=== PATIENT | male | born 1930 | race Caucasian/White ===

== ENCOUNTER 2017-02-18 13:06 | Inpatient (IN) | payer OTHER, MEDICARE ==
[2017-02-18] VITALS (10 sets, daily range): BP systolic 112–131; BP diastolic 53–62; PULSE 58–95; RESP 18–21; TEMP 96.4–97.9; O2SAT 86–100
[~2017-02-18] VITALS: Ht 177.8 cm; Wt 100.0 kg
[~2017-02-18 13:06] MED LIST: ASPI81 PO; ATEN-100 PO; FISH1000 PO; GLUC500C4 PO; LEVO125T3 PO; LOTE10TA2 PO; LOVA1TAB47 PO; RANI150T PO; TAB-TAB PO
--- NOTE | 2017-02-18 13:33 | PD ---
Physical Exam Date Seen by Provider: Feb 18, 2017 Time Seen by Provider: 13:29 Narrative 86 year old male presents to the emergency department for evaluation of generalized weakness. He states he has been having dark, tarry stools for 2 weeks. He was sent by his primary care physician for drop in hemoglobin from 14.0 to 8.4. Vital signs reviewed. Patient awaiting bed placement. Data Data Last Documented VS Vital Signs Date Time Temp Pulse Resp B/P Pulse Ox O2 Delivery O2 Flow Rate FiO2 02/18/17 13:10 97.5 77 20 113/57 86 Room Air [facility] Supervised Visit with HELEN: Kasey Perdomo Feb 18, 2017 13:33
[2017-02-18] MEDS ORDERED: SODIUM CHLOR 0.9% 1000 ML INJ 1,000 ML IV SCH ×2 (15:24→17:30)
[2017-02-18] MEDS ORDERED: SODIUM CHLORIDE 0.9% FLUSH 10 ML FLUSH IVF PRN (15:30)
[2017-02-18] MEDS ORDERED: PANTOPRAZOLE INJ 80 MG in SODIUM CHLORIDE 0.9% INJ 35 ML IV ONE (15:30)
--- NOTE | 2017-02-18 15:30 | PD ---
HPI Chief Complaint: GI Complaint Time Seen by Provider: 15:29 Travel History International Travel<30 days: No Contact w/Intl Traveler<30days: No Traveled to known affect area: No History of Present Illness HPI 86-year-old male with a history of hypertension, hypothyroidism, chronic kidney disease, COPD, and hyperlipidemia presents to the emergency department for evaluation of weakness, lightheadedness and dark stool for 2 weeks. Patient states he was seen at his primary care provider's office today and was told that his hemoglobin had dropped so he was told to come to the emergency department. He states that he has had dark black stool for 2 weeks. Denies any fever, chills, nausea, vomiting, abdominal pain, chest pain, shortness of breath. Denies any prior history of GI bleeding. He does take aspirin daily. Denies any anticoagulation. He does drink one to 2 alcoholic beverages 4 or more times per week. He has never had a colonoscopy before. PCP Dr. Sparks. No other complaints. PFSH Past Medical History Arthritis: Yes Cancer: No Cardiovascular Problems: Yes (AAA) High Cholesterol: Yes Diabetes: No Endocrine: Yes GERD: Yes Genitourinary: No Immune Disorder: No Musculoskeletal: Yes Neurologic: No Psychiatric: No Reproductive: No Respiratory: Yes (COPD) Thyroid Disease: Yes Ulcer: Yes (HX GI BLEED) Tetanus Vaccination: Unknown Influenza Vaccination: Yes Past Surgical History Abdominal Surgery: Yes (DAKOTA. ING. HERNIA REP.) Oral Surgery: Yes (T & A) Pacemaker: No Social History Alcohol Use: Yes (2 DRINKS A NIGHT ) Tobacco Use: No (QUIT 17 YEARS AGO ) Substance Use: No Allergies-Medications (Allergen,Severity, Reaction): Coded Allergies: No Known Allergies (Unverified , 07/21/12) Reported Meds & Prescriptions Reported Meds & Active Scripts Active Reported Fish Oil 1,000 Mg Cap 1,000 Mg PO DAILY Glucosamine/Chondroitin P (Glucosamine-Chondroitin) 1 Tab Tab 1 Tab PO DAILY Multivitamin (Multivitamins) 1 Tab Tab 1 Tab PO DAILY Levothyroxine Sodium (Generic) (Levothyroxine Sodium) 125 Mcg Tab 125 Mcg PO HS Lotensin Hct 10/12.5 (Benazepril/HCTZ) Tab 1 Tab PO DAILY Lovastatin 20 Mg Tab 20 Mg PO Ranitidine Hcl (Ranitidine HCl) 150 Mg Cap 150 Mg PO HS Atenolol 25 Mg Tab 25 Mg PO BID Aspirin 81 Mg Tab 81 Mg PO DAILY Review of Systems Except as stated in HPI: all other systems reviewed are Neg Physical Exam Narrative GENERAL: Well-nourished and well-developed pleasant male patient in no acute distress. SKIN: Pale. Warm and dry. HEAD: Normocephalic and atraumatic. EYES: No injection, drainage, or hyphema noted. PERRLA. EOMI. ENT: No nasal drainage noted. Oropharynx is clear. NECK: Supple and the trachea is midline. CARDIOVASCULAR: Regular rate and rhythm. RESPIRATORY: Breath sounds are equal bilaterally with no accessory muscle use, wheezing, rhonchi, or crackles. GASTROINTESTINAL: Abdomen is soft, non-tender, and nondistended. RECTAL EXAM: No masses or tenderness, stool is block. Performed in the presence of Louann ARAUJO. MUSCULOSKELETAL: No obvious deformities, swelling, cyanosis, or ecchymosis is present throughout the upper and lower extremities. Patient has full range of motion without any signs of neurovascular compromise. NEUROLOGICAL: Awake, alert, and oriented. Normal speech and gait. Cranial nerves are grossly intact. Data Data Last Documented VS Vital Signs Date Time Temp Pulse Resp B/P Pulse Ox O2 Delivery O2 Flow Rate FiO2 02/18/17 13:30 99 02/18/17 13:10 97.5 77 20 113/57 Room Air Orders Complete Blood Count With Diff (02/18/17 15:24) Comprehensive Metabolic Panel (02/18/17 15:24) Prothrombin Time / Inr (Pt) (02/18/17 15:24) Act Partial Throm Time (Ptt) (02/18/17 15:24) Type And Screen (02/18/17 15:24) Ecg Monitoring (02/18/17 15:24) Iv Access Insert/Monitor (02/18/17 15:24) Oximetry (02/18/17 15:24) Sodium Chlor 0.9% 1000 Ml Inj (Ns 1000 M (02/18/17 15:24) Sodium Chloride 0.9% Flush (Ns Flush) (02/18/17 15:30) Pantoprazole Inj (Protonix Inj) (02/18/17 15:30) Pantoprazole Inj (Protonix Inj) (02/18/17 15:30) Orthostatic Vital Signs (02/18/17 15:27) Red Blood Cells (Rbc) (02/18/17 15:27) Consult Gastroenterology (02/18/17 ) Admit Order (Ed Use Only) (02/18/17 17:16) Iron/Tibc Profile (02/18/17 17:16) Ferritin (02/18/17 17:16) Sodium Chlor 0.9% 1000 Ml Inj (Ns 1000 M (02/18/17 17:30) Admit To Inpatient (02/18/17 ) Inpatient Certification (02/18/17 ) Diet Clear Liquid (02/18/17 Dinner) Npo After Midnight W/ Po Meds (02/18/17 Dinner) Labs Laboratory Tests Test 02/18/17 16:10 White Blood Count 9.2 TH/MM3 Red Blood Count 2.49 MIL/MM3 Hemoglobin 8.0 GM/DL Hematocrit 23.1 % Mean Corpuscular Volume 93.1 FL Mean Corpuscular Hemoglobin 32.3 PG Mean Corpuscular Hemoglobin 34.7 % Concent Red Cell Distribution Width 14.5 % Platelet Count 173 TH/MM3 Mean Platelet Volume 8.4 FL Neutrophils (%) (Auto) 79.1 % Lymphocytes (%) (Auto) 13.3 % Monocytes (%) (Auto) 6.3 % Eosinophils (%) (Auto) 1.1 % Basophils (%) (Auto) 0.2 % Neutrophils # (Auto) 7.2 TH/MM3 Lymphocytes # (Auto) 1.2 TH/MM3 Monocytes # (Auto) 0.6 TH/MM3 Eosinophils # (Auto) 0.1 TH/MM3 Basophils # (Auto) 0.0 TH/MM3 CBC Comment AUTO DIFF Prothrombin Time 11.6 SEC Prothromb Time International 1.0 RATIO Ratio Activated Partial 19.8 SEC Thromboplast Time Sodium Level 143 MEQ/L Potassium Level 4.2 MEQ/L Chloride Level 113 MEQ/L Carbon Dioxide Level 19.6 MEQ/L Anion Gap 10 MEQ/L Blood Urea Nitrogen 43 MG/DL Creatinine 1.44 MG/DL Estimat Glomerular Filtration 46 ML/MIN Rate Random Glucose 107 MG/DL Calcium Level 8.4 MG/DL Total Bilirubin 0.4 MG/DL Aspartate Amino Transf 17 U/L (AST/SGOT) Alanine Aminotransferase 16 U/L (ALT/SGPT) Alkaline Phosphatase 32 U/L Total Protein 5.7 GM/DL Albumin 3.1 GM/DL MDM Medical Decision Making Medical Screen Exam Complete: Yes Emergency Medical Condition: Yes Differential Diagnosis GI bleed versus lower versus upper versus symptomatic anemia versus orthostatic hypotension Narrative Course 86-year-old male presents to the emergency department for evaluation of weakness , lightheadedness and black stools for 2 weeks. Patient is afebrile, vital signs are stable. Initially his oxygen saturation was noted to be 86% on room air but is now 99% on room air, likely an error. He is in no respiratory distress and has no shortness of breath. Stools guaiac positive. IV access is obtained, labs are drawn and sent. Patient is placed on alarm security or surveillance monitor and pulse oximetry monitoring. Protonix bolus and drip has been initiated. CBC shows anemia with hemoglobin of 8.0, hematocrit 23.1. CMP shows renal insufficiency with a creatinine of 1.44, BUN 43, GFR 46. This is consistent with previous lab values. Coags are unremarkable. Gastroenterology consult has been ordered. Patient has remained stable and without complaint here in the emergency department. Patient will be admitted for GI bleed. I discussed the case with my attending physician Dr. Mathias who is aware of the patients history, physical examination findings, and treatment plan. HemaPrompt Point of Care Internal Pos. & Neg. Controls: Passed Fecal Specimen Occult Blood: Positive Physician Communication Physician Communication I spoke with Dr. Moon [facility] who agrees to admit the patient to her service. Diagnosis Primary Impression: GI bleed Qualified Code: K92.2 - Gastrointestinal hemorrhage, unspecified gastrointestinal hemorrhage type Additional Impression: Symptomatic anemia Admitting Information Admitting Physician Requests: Admit Sahara Lee Feb 18, 2017 15:29
[2017-02-18 16:18] LABS: AUTOMATED NEUTROPHIL # 7.2 TH/MM3 (1.8-7.7); BASOPHIL % 0.2 % (0.0-2.0); EOSINOPHIL # 0.1 TH/MM3 (0-0.4); EOSINOPHIL % 1.1 % (0.0-4.0); HEMATOCRIT 23.1 % (39.0-51.0); LYMPH % 13.3 % (9.0-44.0); LYMPHOCYTE # 1.2 TH/MM3 (1.0-4.8); MEAN CELL VOLUME 93.1 FL (80.0-100.0); MEAN CORPUSCULAR HEMOGLOBIN 32.3 PG (27.0-34.0); MEAN CORPUSCULAR HGB CONC 34.7 % (32.0-36.0); MONO % 6.3 % (0.0-8.0); NEUT % 79.1 % (16.0-70.0); PLATELET COUNT 173 TH/MM3 (150-450); RED BLOOD COUNT 2.49 MIL/MM3 (4.50-5.90); RED CELL DISTRIBUTION WIDTH 14.5 % (11.6-17.2); WHITE BLOOD COUNT 9.2 TH/MM3 (4.0-11.0)
[2017-02-18 16:20] LABS: HEMO FLAGS AUTO DIFF
[2017-02-18 16:34] LABS: PROTHROMBIN TIME - PATIENT 11.6 SEC (9.8-11.6)
[2017-02-18 16:36] LABS: ALT (GPT) 16 U/L (12-78); ANION GAP 10 MEQ/L (5-15); AST (GOT) 17 U/L (15-37); BICARBONATE 19.6 MEQ/L (21.0-32.0); BLOOD UREA NITROGEN 43 MG/DL (7-18); CHLORIDE 113 MEQ/L (98-107); GLOMERULAR FILTRATION RATE 46 ML/MIN (>89); POTASSIUM 4.2 MEQ/L (3.5-5.1); SODIUM (NA) 143 MEQ/L (136-145)
[2017-02-18 16:38] LABS: ALKALINE PHOSPHATASE 32 U/L (45-117); TOTAL BILIRUBIN ADULT 0.4 MG/DL (0.2-1.0)
[2017-02-18 16:39] LABS: APTT (PATIENT) 19.8 SEC (24.3-30.1)
[2017-02-18] MEDS: PANTOPRAZOLE INJ 80 MG in SODIUM CHLORIDE 0.9% INJ 100 ML IV SCH (17:51)
[2017-02-18 18:00] LABS: EOSINOPHILS 1 % (0-4); METAMYELOCYTES 2 % (0-1); MYELOCYTES 2 % (0-0); NEUTROPHIL # MANUAL DIFF 7.2 TH/MM3 (1.8-7.7); PLATELET ESTIMATE SMEAR NORMAL (NORMAL); PLATELET MORPHOLOGY NORMAL (NORMAL); POLYS (SEG NEUTROPHILS) 74 % (16-70); SCAN/DIFF FINAL DIFF MANUAL; WBC DIFF SAMPLE 100
[2017-02-18 18:07] LABS: FERRITIN 86 NG/ML (26-388); TRANSFERRIN IRON PROFILE 201 MG/DL (200-360)
[2017-02-18] MEDS ORDERED: SODIUM CHLORIDE 0.9% FLUSH 10 ML FLUSH IV FLUSH PRN (19:15)
[2017-02-18] MEDS ORDERED: ACETAMINOPHEN 325 MG TAB PO PRN (19:15)
[2017-02-18] MEDS ORDERED: ONDANSETRON HCL 4 MG/2 ML VIAL IVP PRN (19:15)
[2017-02-18] MEDS ORDERED: NALOXONE HCL 0.4 MG/ML AMP IV PRN (19:15)
--- NOTE | 2017-02-18 19:42 | HHI.HP ---
[facility] Silvina Sparks Do, MD Admission Diagnosis GI Bleed, Symptomatic Anemia Diagnoses: Chief Complaint: Worsening generalized weakness and dizzinessx 2-3 weeks Travel History International Travel<30 Days: No Contact w/Intl Traveler <30 Da: No Traveled to Known Affected Are: No History of Present Illness This a pleasant 86-year-old male patient with past medical history which includes hypertension, hyperlipidemia, hypothyroidism, osteoarthritis, GERD, chronic kidney disease, COPD and AAA status post repair. Patient presents to the emergency department today after instructed by his primary care provider. Patient's primary care provider noted a drop in hemoglobin from 14.1-8.0. Patient reports for the past 2-3 weeks he has been having dark tarry stools. For the past 3 days patient reports he has had increasing generalized weakness, feeling lightheaded/dizziness and shortness of breath. The symptoms are getting progressively worse. Patient reports the feeling lightheaded and dizziness is worse with standing or sitting up fast. Patient denies right red blood per rectum, abdominal pain, nausea/vomiting, fevers, chills, cough, congestion or chest pain. Denies any prior history of GI bleeding. He does take aspirin daily. Reports he has never had a colonoscopy before. Hemoccult stool positive emergency department Review of Systems ROS Limitations: Poor Historian Except as stated in HPI: all other systems reviewed are Neg Past Family Social History Past Medical History Hypertension, hypokalemia, hypothyroidism, osteoarthritis right knee, GERD, CKD , AAA status post repair, COPD Past Surgical History Hernia repair, right total knee replacement, AAA status post repair Reported Medications Fish Oil 1,000 Mg Cap 1,000 Mg PO DAILY Glucosamine/Chondroitin P (Glucosamine-Chondroitin) 1 Tab Tab 1 Tab PO DAILY Multivitamin (Multivitamins) 1 Tab Tab 1 Tab PO DAILY Levothyroxine Sodium (Generic) (Levothyroxine Sodium) 125 Mcg Tab 125 Mcg PO HS Lotensin Hct 10/12.5 (Benazepril/HCTZ) Tab 1 Tab PO DAILY Lovastatin 20 Mg Tab 20 Mg PO Ranitidine Hcl (Ranitidine HCl) 150 Mg Cap 150 Mg PO HS Atenolol 25 Mg Tab 25 Mg PO BID Aspirin 81 Mg Tab 81 Mg PO DAILY Allergies: Coded Allergies: No Known Allergies (Unverified , 07/21/12) Active Ordered Medications Current Medications Medications (Trade) Dose Ordered Sig/Maria Luisa Route Start Time Stop Time Status Last Admin Pantoprazole Sodium 80 mg/ Sodium Chloride 100 ml @ 10 mls/hr Q10H IV 02/18/17 15:30 02/18/17 17:51 (NS 1000 ml Inj) 1,000 ml @ 75 mls/hr [id number] IV 02/18/17 20:00 02/18/17 20:21 (NS Flush) 2 ml UNSCH PRN IV FLUSH 02/18/17 19:15 (NS Flush) 2 ml BID IV FLUSH 02/18/17 21:00 (Tylenol) 650 mg Q4H PRN PO 02/18/17 19:15 (Zofran Inj) 4 mg Q6H PRN IVP 02/18/17 19:15 (Narcan Inj) 0.4 mg UNSCH PRN IV 02/18/17 19:15 Family History Positive for CAD Social History EtOH use drinks one to 2 alcoholic drinks per day Quit smoking cigarettes approximately 10 years ago prior to that had 30 pack year history Denies illicit drug use Physical Exam Vital Signs Vital Signs Date Time Temp Pulse Resp B/P Pulse Ox O2 Delivery O2 Flow Rate FiO2 02/18/17 18:44 97.7 95 21 123/58 99 02/18/17 18:14 62 20 115/62 98 Room Air 02/18/17 18:13 99 Room Air 02/18/17 17:00 58 20 113/53 98 Room Air 02/18/17 15:00 65 20 112/62 97 Room Air 02/18/17 13:30 99 02/18/17 13:10 97.5 77 20 113/57 86 Room Air Physical Exam GENERAL: This is a well-nourished, well-developed patient, pale in appearance SKIN: No rashes, ecchymoses or lesions. Cool and dry, pale in appearance HEAD: Atraumatic. Normocephalic. No temporal or scalp tenderness. EYES: Extraocular motions intact. No scleral icterus. No injection or drainage. CARDIOVASCULAR: Regular rate and rhythm without murmurs, gallops, or rubs. RESPIRATORY: Clear to auscultation. Breath sounds equal bilaterally. No wheezes , rales, or rhonchi. GASTROINTESTINAL: Abdomen soft, non-tender, nondistended.No guarding. + umbilical hernia MUSCULOSKELETAL: Trace bilateral lower extremity edema No calf tenderness. Negative Homans sign bilaterally. NEUROLOGICAL: Awake and alert. No focal deficits appreciated. Motor and sensory grossly within normal limits. 4 out of 5 muscle strength in all muscle groups. Normal speech. Laboratory Laboratory Tests Test 02/18/17 16:10 White Blood Count 9.2 Red Blood Count 2.49 Hemoglobin 8.0 Hematocrit 23.1 Mean Corpuscular Volume 93.1 Mean Corpuscular Hemoglobin 32.3 Mean Corpuscular Hemoglobin 34.7 Concent Red Cell Distribution Width 14.5 Platelet Count 173 Mean Platelet Volume 8.4 Neutrophils (%) (Auto) 79.1 Lymphocytes (%) (Auto) 13.3 Monocytes (%) (Auto) 6.3 Eosinophils (%) (Auto) 1.1 Basophils (%) (Auto) 0.2 Neutrophils # (Auto) 7.2 Lymphocytes # (Auto) 1.2 Monocytes # (Auto) 0.6 Eosinophils # (Auto) 0.1 Basophils # (Auto) 0.0 CBC Comment AUTO DIFF Differential Total Cells 100 Counted Neutrophils % (Manual) 74 Lymphocytes % 17 Monocytes % 4 Eosinophils % 1 Neutrophils # (Manual) 7.2 Metamyelocytes 2 Myelocytes 2 Differential Comment FINAL DIFF MANUAL Platelet Estimate NORMAL Platelet Morphology Comment NORMAL Prothrombin Time 11.6 Prothromb Time International 1.0 Ratio Activated Partial 19.8 Thromboplast Time Sodium Level 143 Potassium Level 4.2 Chloride Level 113 Carbon Dioxide Level 19.6 Anion Gap 10 Blood Urea Nitrogen 43 Creatinine 1.44 Estimat Glomerular Filtration 46 Rate Random Glucose 107 Calcium Level 8.4 Iron Level 50 Total Iron Binding Capacity 281 Percent Iron Saturation 17.8 Ferritin 86 Total Bilirubin 0.4 Aspartate Amino Transf 17 (AST/SGOT) Alanine Aminotransferase 16 (ALT/SGPT) Alkaline Phosphatase 32 Total Protein 5.7 Albumin 3.1 Blood Type B POSITIVE Antibody Screen NEGATIVE Crossmatch Leukocyte-Reduced Red Blood Cells Blood Bank Comment Result Diagram: 02/18/17 1610 02/18/17 1610 Assessment and Plan Problem List: (1) Symptomatic anemia ICD Code: D64.9 Status: Acute (2) GI bleed ICD Code: K92.2 Status: Acute Assessment and Plan This a pleasant 86-year-old male patient with past medical history which includes hypertension, hyperlipidemia, hypothyroidism, osteoarthritis, GERD, chronic kidney disease, COPD and AAA status post repair. Patient presents to the emergency department today after instructed by his primary care provider. Patient's primary care provider noted a drop in hemoglobin from 14.1-8.0. Patient reports for the past 2-3 weeks he has been having dark tarry stools. For the past 3 days patient reports he has had increasing generalized weakness, feeling lightheaded/dizziness and shortness of breath. Hemoccult stool positive emergency department Symptomatic anemia likely with GIB -transfuse 2 units RBC now - GI consult -start on IV PPI -check Iron studies MANDY from GIB - ff BMP -gentle IVF after transfusion Hypertension- chronic -hold lisinopriHCTZ light of acute kidney injury -Continue atenolol Hypothyroidism- chronic - Continue Synthroid DVT prophylaxis with SCDs- avoid chemical DVT prophylaxis GI bleed Discussed with ear provider, nursing and patient Written by Anita Erazo, acting as scribe for Dr. Moon on 02/18/17 at 21:37. Physician Certification 2 Midnight Certification Type: Admission for Inpatient Services Order for Inpatient Services The services are ordered in accordance with Medicare regulations or non- Medicare payer requirements, as applicable. In the case of services not specified as inpatient-only, they are appropriately provided as inpatient services in accordance with the 2-midnight benchmark. Estimated LOS (days): 3 days is the estimated time the patient will need to remain in the hospital, assuming treatment plan goals are met and no additional complications. Post-Hospital Plan: Home Problem Qualifiers (1) GI bleed: Qualified Code: K92.2 - Gastrointestinal hemorrhage, unspecified gastrointestinal hemorrhage type Anita Erazo Feb 18, 2017 19:41 Darcie Moon MD Feb 18, 2017 21:17
[2017-02-18] MEDS: SODIUM CHLOR 0.9% 1000 ML INJ 1,000 ML IV SCH (20:21)
[2017-02-18] MEDS: SODIUM CHLORIDE 0.9% FLUSH 10 ML FLUSH IV FLUSH SCH (20:21)
[2017-02-18 20:41] LABS: HEMATOCRIT 21.8 % (39.0-51.0)
--- NOTE | 2017-02-18 22:28 | RADRPT ---
EXAM DATE/TIME: 02/18/2017 21:42 [place] COMPARISON: No previous studies available for comparison. INDICATIONS : Shortness of breath. MEDICAL HISTORY : None. SURGICAL HISTORY : None. ENCOUNTER: Initial ACUITY: 1 day PAIN SCORE: 0/10 LOCATION: Bilateral chest FINDINGS: A single view of the chest demonstrates the lungs to be symmetrically aerated without evidence of mas s, infiltrate or effusion. The cardiomediastinal contours are unremarkable. Osseous structures are intact. CONCLUSION: No acute disease. Anselmo Staley MD on February 18, 2017 at 22:26 Board Certified Radiologist. This report was verified electronically.
[2017-02-19] VITALS (9 sets, daily range): BP systolic 104–128; BP diastolic 50–76; PULSE 55–94; RESP 17–20; TEMP 96.8–97.5; O2SAT 94–98
[2017-02-19] MEDS: PANTOPRAZOLE INJ 80 MG in SODIUM CHLORIDE 0.9% INJ 100 ML IV SCH ×3 (01:30→17:35)
[2017-02-19] MEDS: SODIUM CHLORIDE 0.9% FLUSH 10 ML FLUSH IV FLUSH SCH ×2 (08:28→20:58)
[2017-02-19] MEDS ORDERED: ATENOLOL 25 MG TAB PO SCH (09:00)
--- NOTE | 2017-02-19 10:04 | PD.CONS ---
HPI History of Present Illness This a very pleasant 86-year-old male patient with past medical history which includes hypertension, hyperlipidemia, hypothyroidism, osteoarthritis, GERD, chronic kidney disease, COPD and AAA status post repair who presents to the emergency department for out patient labs that revealed a significant drop in hgb from 14.1-8.0. and was instructed by PCP to go to the ED for blood transfusion. Patient reports 2-3 weeks history of black tarry stools, this wasn't every day and not very frequent. He reports increasing generalized weakness, feeling lightheaded/dizziness and shortness of breath. Patient denies diarrhea, bright red blood per rectum, abdominal pain, nausea/vomiting, fevers, or chills. Denies any prior history of GI bleeding. He denies NSAIDs, He does take aspirin daily. He drinks 1-2 alcoholic drinks a night but not every night. Reports he has never had a colonoscopy before. He does have GERD and had EGD 7 years ago. Hemoccult stool positive emergency department. Hgb is 7.4 today. He did receive 2 units of blood. He had one black tarry stools today. PFSH Past Medical History Hypertension, hypokalemia, hypothyroidism, osteoarthritis right knee, GERD, CKD , AAA status post repair, COPD Past Surgical History Hernia repair, right total knee replacement, AAA status post repair Coded Allergies: No Known Allergies (Unverified , 07/21/12) Family History No family hx of colon or gastric cancer Social History EtOH use drinks one to 2 alcoholic drinks per day Quit smoking cigarettes approximately 10 years ago prior to that had 30 pack year history Denies illicit drug use Review of Systems Constitutional: COMPLAINS OF: Dizziness, Change in appetite Endocrine: DENIES: Polyuria Eyes: DENIES: Double Vision Ears, nose, mouth, throat: DENIES: Hoarseness Respiratory: COMPLAINS OF: Shortness of breath Cardiovascular: DENIES: Lower Extremity Edema Gastrointestinal: COMPLAINS OF: Black stools, DENIES: Abdominal pain, Bloody stools, Constipation, Diarrhea, Nausea, Vomiting, Difficulty Swallowing, Anorexia, Odynophagia, Swelling of Abdomen, Heartburn, Hematemesis Genitourinary: DENIES: Hematuria Musculoskeletal: COMPLAINS OF: Back pain Integumentary: DENIES: Jaundice Hematologic/lymphatic: COMPLAINS OF: Bruising Immunologic/allergic: DENIES: Eczema Neurologic: DENIES: Abnormal gait Psychiatric: DENIES: Anxiety GI Exam Vitals I&O Vital Signs Date Time Temp Pulse Resp B/P Pulse Ox O2 Delivery O2 Flow Rate FiO2 02/19/17 08:00 97.2 55 20 128/58 95 02/19/17 04:00 97.2 94 19 108/62 94 02/19/17 01:04 97.1 59 18 106/50 95 02/19/17 00:45 96.8 80 17 104/56 97 02/19/17 00:00 96.8 80 17 104/56 97 02/18/17 21:46 97.9 63 18 120/53 100 02/18/17 21:26 96.4 66 18 116/53 100 02/18/17 20:00 97.2 72 18 131/60 97 02/18/17 18:44 97.7 95 21 123/58 99 02/18/17 18:14 62 20 115/62 98 Room Air 02/18/17 18:13 99 Room Air 02/18/17 17:00 58 20 113/53 98 Room Air 02/18/17 15:00 65 20 112/62 97 Room Air 02/18/17 13:30 99 02/18/17 13:10 97.5 77 20 113/57 86 Room Air I/O 02/18/17 02/18/17 02/18/17 02/19/17 02/19/17 02/19/17 07:00 15:00 23:00 07:00 15:00 23:00 Intake Total 1295 ml Output Total 1000 ml Balance 295 ml Intake Oral 0 ml IV Total 1295 ml Output Urine Total 1000 ml # Bowel Movements 0 Imaging Last Impressions Chest X-Ray 02/18/17 0000 Signed Impressions: Service Date/Time: Saturday, February 18, 2017 21:42 - CONCLUSION: No acute disease. Anselmo Staley MD Laboratory Test 02/18/17 02/18/17 16:10 20:11 White Blood Count 9.2 TH/MM3 Red Blood Count 2.49 MIL/MM3 Hemoglobin 8.0 GM/DL 7.4 GM/DL Hematocrit 23.1 % 21.8 % Mean Corpuscular Volume 93.1 FL Mean Corpuscular Hemoglobin 32.3 PG Mean Corpuscular Hemoglobin 34.7 % Concent Red Cell Distribution Width 14.5 % Platelet Count 173 TH/MM3 Mean Platelet Volume 8.4 FL Neutrophils (%) (Auto) 79.1 % Lymphocytes (%) (Auto) 13.3 % Monocytes (%) (Auto) 6.3 % Eosinophils (%) (Auto) 1.1 % Basophils (%) (Auto) 0.2 % Neutrophils # (Auto) 7.2 TH/MM3 Lymphocytes # (Auto) 1.2 TH/MM3 Monocytes # (Auto) 0.6 TH/MM3 Eosinophils # (Auto) 0.1 TH/MM3 Basophils # (Auto) 0.0 TH/MM3 CBC Comment AUTO DIFF Differential Total Cells 100 Counted Neutrophils % (Manual) 74 % Lymphocytes % 17 % Monocytes % 4 % Eosinophils % 1 % Neutrophils # (Manual) 7.2 TH/MM3 Metamyelocytes 2 % Myelocytes 2 % Differential Comment FINAL DIFF MANUAL Platelet Estimate NORMAL Platelet Morphology Comment NORMAL Prothrombin Time 11.6 SEC Prothromb Time International 1.0 RATIO Ratio Activated Partial 19.8 SEC Thromboplast Time Sodium Level 143 MEQ/L Potassium Level 4.2 MEQ/L Chloride Level 113 MEQ/L Carbon Dioxide Level 19.6 MEQ/L Anion Gap 10 MEQ/L Blood Urea Nitrogen 43 MG/DL Creatinine 1.44 MG/DL Estimat Glomerular Filtration 46 ML/MIN Rate Random Glucose 107 MG/DL Calcium Level 8.4 MG/DL Iron Level 50 MCG/DL Total Iron Binding Capacity 281 MCG/DL Percent Iron Saturation 17.8 % Ferritin 86 NG/ML Total Bilirubin 0.4 MG/DL Aspartate Amino Transf 17 U/L (AST/SGOT) Alanine Aminotransferase 16 U/L (ALT/SGPT) Alkaline Phosphatase 32 U/L Total Protein 5.7 GM/DL Albumin 3.1 GM/DL Blood Type B POSITIVE Antibody Screen NEGATIVE Crossmatch Leukocyte-Reduced Red Blood Cells Blood Bank Comment Physical Examination HEENT: normocephalic; atraumatic; no jaundice. Throat is clear. NECK: Neck is supple, no JVD, no lymphadenopathy. CHEST: Chest is clear to auscultation and percussion. CARDIAC: Regular rate and rhythm with no murmur gallop or rubs. ABDOMEN: Soft, nondistended, nontender; no hepatosplenomegaly; bowel sounds are present in all four quadrants. EXTREMITIES: No clubbing, cyanosis, or edema. SKIN: Normal; no rash; no jaundice. CORPORATE BUYER: No focal deficits; alert and oriented times three. Assessment and Plan Plan - GI bleed/melena/anemia- presents to the emergency department for out patient labs that revealed a significant drop in hgb from 14.1-8.0. and was instructed by PCP to go to the ED for blood transfusion. Patient reports 2-3 weeks history of black tarry stools, this wasn't every day and not very frequent. He reports increasing generalized weakness, feeling lightheaded/dizziness and shortness of breath. Patient denies diarrhea, bright red blood per rectum, abdominal pain, nausea/vomiting, fevers, or chills. Denies any prior history of GI bleeding. Denies NSAIDs. He does take aspirin daily. He drinks 1-2 alcoholic drinks a night but not every night. Reports he has never had a colonoscopy before. He does have GERD and had EGD 7 years ago. Hemoccult stool positive emergency department. Hgb is 7.4 today. He did receive 2 units of blood. He had one black tarry stools today. PPI drip - Anemia- secondary to acute blood loss - hypertension, hyperlipidemia, hypothyroidism, osteoarthritis, GERD, chronic kidney disease, COPD and AAA status post repair Plan: - Heart healthy diet - EGD Tuesday - I discussed with patient doing colonoscopy at the same time, but he is declining, would like to proceed with EGD first, if this comes back negative, he will consider doing colonoscopy - Obtain consents - PPI Gtt - Monitor hh - Transfuse as needed - Notify Gi for active bleeding - If above negative, consider colonoscopy - Patient seen and examined by Dr. Osuna and myself and this note is written on his behalf. Radha Ramsey Feb 19, 2017 10:04
[2017-02-19 11:20] LABS: AUTOMATED NEUTROPHIL # 5.3 TH/MM3 (1.8-7.7); BASOPHIL % 0.3 % (0.0-2.0); EOSINOPHIL # 0.2 TH/MM3 (0-0.4); EOSINOPHIL % 3.3 % (0.0-4.0); HEMATOCRIT 25.3 % (39.0-51.0); LYMPH % 14.4 % (9.0-44.0); MEAN CELL VOLUME 90.3 FL (80.0-100.0); MEAN CORPUSCULAR HEMOGLOBIN 30.5 PG (27.0-34.0); MEAN CORPUSCULAR HGB CONC 33.8 % (32.0-36.0); MONO % 7.8 % (0.0-8.0); NEUT % 74.2 % (16.0-70.0); PLATELET COUNT 126 TH/MM3 (150-450); RED BLOOD COUNT 2.81 MIL/MM3 (4.50-5.90); RED CELL DISTRIBUTION WIDTH 15.7 % (11.6-17.2); WHITE BLOOD COUNT 7.1 TH/MM3 (4.0-11.0)
[2017-02-19 11:22] LABS: HEMO FLAGS AUTO DIFF
[2017-02-19 11:43] LABS: BICARBONATE 21.6 MEQ/L (21.0-32.0); POTASSIUM 3.6 MEQ/L (3.5-5.1)
[2017-02-19 12:50] LABS: SCAN/DIFF AUTO DIFF CONFIRMED
--- NOTE | 2017-02-19 14:17 | HHI.PR ---
Subjective Remarks no melena or hematochezia no hematemesis, no abdominal pain swallowing no difficulties no chest pains or shortness of breath up and ambulating around the room Objective Vitals Vital Signs Date Time Temp Pulse Resp B/P Pulse Ox O2 Delivery O2 Flow Rate FiO2 02/19/17 12:00 97.3 65 18 122/76 98 02/19/17 10:49 96 21 02/19/17 08:00 97.2 55 20 128/58 95 02/19/17 04:00 97.2 94 19 108/62 94 02/19/17 01:04 97.1 59 18 106/50 95 02/19/17 00:45 96.8 80 17 104/56 97 02/19/17 00:00 96.8 80 17 104/56 97 02/18/17 21:46 97.9 63 18 120/53 100 02/18/17 21:26 96.4 66 18 116/53 100 02/18/17 20:00 97.2 72 18 131/60 97 02/18/17 18:44 97.7 95 21 123/58 99 02/18/17 18:14 62 20 115/62 98 Room Air 02/18/17 18:13 99 Room Air 02/18/17 17:00 58 20 113/53 98 Room Air 02/18/17 15:00 65 20 112/62 97 Room Air I/O 02/18/17 02/18/17 02/18/17 02/19/17 02/19/17 02/19/17 07:00 15:00 23:00 07:00 15:00 23:00 Intake Total 1295 ml Output Total 1000 ml Balance 295 ml Intake Oral 0 ml IV Total 1295 ml Output Urine Total 1000 ml # Bowel Movements 0 Result Diagram: 02/19/17 1105 02/19/17 1105 Imaging Last Impressions Chest X-Ray 02/18/17 0000 Signed Impressions: Service Date/Time: Saturday, February 18, 2017 21:42 - CONCLUSION: No acute disease. Anselmo Staley MD Objective Remarks awake and alert, oriented x 3, NAD lungs no rales or wheezes regular rhythm abdomen soft, nontender, good bowel sounds, + umbilical hernia extremities no edema neuro exam- nunremarkable A/P Problem List: (1) Symptomatic anemia ICD Code: D64.9 Status: Acute (2) GI bleed ICD Code: K92.2 Status: Acute Assessment and Plan This a pleasant 86-year-old male patient with past medical history which includes hypertension, hyperlipidemia, hypothyroidism, osteoarthritis, GERD, chronic kidney disease, COPD and AAA status post repair. Patient presents after instructed by his primary care provider. Patient's primary care provider noted a drop in hemoglobin from 14.1-8.0. Patient reports for the past 2-3 weeks he has been having dark tarry stools. For the past 3 days patient reports he has had increasing generalized weakness, feeling lightheaded/ dizziness and shortness of breath. Hemoccult stool positive emergency department Symptomatic anemia likely with GIB -transfuse 2 units RBC now. H and H monitoring - GI consulted- plan for EGD on Tuesday- earlier if shows active bleeding - on IV PPI - low iron stores MANDY from GIB- renal functions improves, non oliguric - ff BMP Hypertension- chronic -hold lisinopriHCTZ light of acute kidney injury -Continue atenolol Hypothyroidism- chronic - Continue Synthroid DVT prophylaxis with SCDs- avoid chemical DVT prophylaxis GI bleed Discussed with patient increase activity /ambulation around the room call staff if develops dizziness, or note any blood in stools Problem Qualifiers (1) GI bleed: Qualified Code: K92.2 - Gastrointestinal hemorrhage, unspecified gastrointestinal hemorrhage type Darcie Moon MD Feb 19, 2017 14:17
[2017-02-19] MEDS: SODIUM CHLOR 0.9% 1000 ML INJ 1,000 ML IV SCH (14:54)
--- NOTE | 2017-02-19 15:39 | EKG ---
Date Performed: 02/18/2017 Time Performed: 18:17:49 PTAGE: 86 years EKG: SINUS BRADYCARDIA RIGHT BUNDLE BRANCH BLOCK ABNORMAL ECG NO PREVIOUS TRACING DOCTOR: Jones Davis Interpretating Date/Time 02/19/2017 15:37:45
[2017-02-19] MEDS: FERROUS SULFATE 325 MG (65 MG ELEMENTAL IRON) TAB PO SCH (20:58)
[2017-02-19] MEDS ORDERED: LEVOTHYROXINE SODIUM 125 MCG TAB PO SCH (21:00)
[2017-02-20 01:02] VITALS: BP 103/51; PULSE 58; RESP 20; TEMP 96; O2SAT 96
[2017-02-20 04:00] VITALS: BP 123/50; PULSE 57; RESP 20; TEMP 96.6; O2SAT 98
[2017-02-20] MEDS: LEVOTHYROXINE SODIUM 125 MCG TAB PO SCH (05:08)
[2017-02-20] MEDS: PANTOPRAZOLE INJ 80 MG in SODIUM CHLORIDE 0.9% INJ 100 ML IV SCH ×2 (05:08→16:11)
[2017-02-20] MEDS: SODIUM CHLOR 0.9% 1000 ML INJ 1,000 ML IV SCH ×2 (05:08→16:11)
[2017-02-20 09:00] VITALS: BP 123/74; PULSE 58; RESP 20; TEMP 96; O2SAT 96
[2017-02-20] MEDS: FERROUS SULFATE 325 MG (65 MG ELEMENTAL IRON) TAB PO SCH ×2 (09:05→20:52)
[2017-02-20] MEDS: ATENOLOL 25 MG TAB PO SCH (09:05)
[2017-02-20 09:09] LABS: HEMATOCRIT 26.7 % (39.0-51.0); MEAN CELL VOLUME 89.7 FL (80.0-100.0); MEAN CORPUSCULAR HEMOGLOBIN 31.2 PG (27.0-34.0); MEAN CORPUSCULAR HGB CONC 34.8 % (32.0-36.0); PLATELET COUNT 128 TH/MM3 (150-450); RED BLOOD COUNT 2.97 MIL/MM3 (4.50-5.90); RED CELL DISTRIBUTION WIDTH 15.9 % (11.6-17.2); REVIEW FLAG FINAL; WHITE BLOOD COUNT 7.7 TH/MM3 (4.0-11.0)
[2017-02-20] MEDS: SODIUM CHLORIDE 0.9% FLUSH 10 ML FLUSH IV FLUSH SCH ×2 (09:09→20:52)
[2017-02-20 12:00] VITALS: BP 121/66; PULSE 56; RESP 20; TEMP 98.9; O2SAT 98
--- NOTE | 2017-02-20 15:46 | HHI.GIFU ---
Subjective Remarks feels ok, no new complains no sign of active bleed Objective Vitals I&O Vital Signs Date Time Temp Pulse Resp B/P Pulse Ox O2 Delivery O2 Flow Rate FiO2 02/20/17 12:00 98.9 56 20 121/66 98 02/20/17 09:00 96.0 58 20 123/74 96 02/20/17 04:00 96.6 57 20 123/50 98 02/20/17 01:02 96.0 58 20 103/51 96 02/19/17 20:48 97.2 63 18 109/55 97 02/19/17 16:00 97.5 55 18 116/58 98 I/O 02/19/17 02/19/17 02/19/17 02/20/17 02/20/17 02/20/17 07:00 15:00 23:00 07:00 15:00 23:00 Intake Total 1295 ml 1197 ml Output Total 1000 ml 550 ml 250 ml 400 ml Balance 295 ml 647 ml -250 ml -400 ml Intake Oral 0 ml 480 ml IV Total 1295 ml 717 ml Output Urine Total 1000 ml 550 ml 250 ml 400 ml # Bowel Movements 0 0 Laboratory Laboratory Tests Test 02/20/17 08:44 White Blood Count 7.7 Red Blood Count 2.97 Hemoglobin 9.3 Hematocrit 26.7 Mean Corpuscular Volume 89.7 Mean Corpuscular Hemoglobin 31.2 Mean Corpuscular Hemoglobin 34.8 Concent Red Cell Distribution Width 15.9 Platelet Count 128 Mean Platelet Volume 7.9 Hematology Comments Physical Exam HEENT: Pupils round and reactive to light; normocephalic; atraumatic; no jaundice. Throat is clear. NECK: Neck is supple, no JVD, no lymphadenopathy. CHEST: Chest is clear to auscultation and percussion. CARDIAC: Regular rate and rhythm with no murmur gallop or rubs. ABDOMEN: Soft, nondistended, nontender; no hepatosplenomegaly; bowel sounds are present in all four quadrants. EXTREMITIES: No clubbing, cyanosis, or edema. SKIN: Normal; no rash; no jaundice. TENSION MACHINE OPERATOR: No focal deficits; alert and oriented times three. Assessment and Plan Plan - GI bleed/melena/anemia- presents to the emergency department for out patient labs that revealed a significant drop in hgb from 14.1-8.0. and was instructed by PCP to go to the ED for blood transfusion. Patient reports 2-3 weeks history of black tarry stools, this wasn't every day and not very frequent. He reports increasing generalized weakness, feeling lightheaded/dizziness and shortness of breath. Patient denies diarrhea, bright red blood per rectum, abdominal pain, nausea/vomiting, fevers, or chills. Denies any prior history of GI bleeding. Denies NSAIDs. He does take aspirin daily. He drinks 1-2 alcoholic drinks a night but not every night. Reports he has never had a colonoscopy before. He does have GERD and had EGD 7 years ago. Hemoccult stool positive emergency department. Hgb is 7.4 today. He did receive 2 units of blood. He had one black tarry stools today. PPI drip - Anemia- secondary to acute blood loss - hypertension, hyperlipidemia, hypothyroidism, osteoarthritis, GERD, chronic kidney disease, COPD and AAA status post repair 4-16-17 doing better, no sign active bleed. no pain Plan: - Heart healthy diet - EGD in am - colonoscopy on Tuesday if EGD negative - Obtain consents - PPI Gtt - Monitor hh - Transfuse as needed - Notify Gi for active bleeding Abrahan Osuna MD Feb 20, 2017 15:46
--- NOTE | 2017-02-20 16:31 | HHI.PR ---
Subjective Remarks no abdominal pain, nausea or vomiting no melena or hematochezia up and ambulating- no dizziness Objective Vitals Vital Signs Date Time Temp Pulse Resp B/P Pulse Ox O2 Delivery O2 Flow Rate FiO2 02/20/17 12:00 98.9 56 20 121/66 98 02/20/17 09:00 96.0 58 20 123/74 96 02/20/17 04:00 96.6 57 20 123/50 98 02/20/17 01:02 96.0 58 20 103/51 96 02/19/17 20:48 97.2 63 18 109/55 97 I/O 02/19/17 02/19/17 02/19/17 02/20/17 02/20/17 02/20/17 07:00 15:00 23:00 07:00 15:00 23:00 Intake Total 1295 ml 1197 ml Output Total 1000 ml 550 ml 250 ml 400 ml Balance 295 ml 647 ml -250 ml -400 ml Intake Oral 0 ml 480 ml IV Total 1295 ml 717 ml Output Urine Total 1000 ml 550 ml 250 ml 400 ml # Bowel Movements 0 0 Result Diagram: 02/20/17 0844 02/19/17 1105 Imaging Last Impressions Chest X-Ray 02/18/17 0000 Signed Impressions: Service Date/Time: Saturday, February 18, 2017 21:42 - CONCLUSION: No acute disease. Anselmo Staley MD Objective Remarks awake and alert, oriented x 3, NAD lungs no rales , + few wheezes with exertion regular rhythm abdomen soft, nontender, good bowel sounds. + umbilical hernia extremities no edema neuro exam- unremarkable A/P Problem List: (1) Symptomatic anemia ICD Code: D64.9 Status: Acute (2) GI bleed ICD Code: K92.2 Status: Acute Assessment and Plan This a pleasant 86-year-old male patient with past medical history which includes hypertension, hyperlipidemia, hypothyroidism, osteoarthritis, GERD, chronic kidney disease, COPD and AAA status post repair. Patient presents after instructed by his primary care provider. Patient's primary care provider noted a drop in hemoglobin from 14.1-8.0. Patient reports for the past 2-3 weeks he has been having dark tarry stools. For the past 3 days patient reports he has had increasing generalized weakness, feeling lightheaded/ dizziness and shortness of breath. Hemoccult stool positive emergency department Symptomatic anemia likely with GIB -transfuse 2 units RBC now. H and H monitoring - GI consulted- plan for EGD on Tuesday- earlier if shows active bleeding - on IV PPI - low iron stores- on Iron bid MANDY from GIB- renal functions improves, non oliguric Hypertension- chronic- good readings -hold lisinopriHCTZ light of acute kidney injury -Continue atenolol Hypothyroidism- chronic - Continue Synthroid COPD- mild wheezing with exertion -start nebulizations prn - now states at home on Symbicort - restart. -start Spiriva 1 puff daily DVT prophylaxis with SCDs- avoid chemical DVT prophylaxis GI bleed Discussed with patient Problem Qualifiers (1) GI bleed: Qualified Code: K92.2 - Gastrointestinal hemorrhage, unspecified gastrointestinal hemorrhage type Darcie Moon MD Feb 20, 2017 16:31
[2017-02-20] MEDS ORDERED: RESP: ALBUTEROL 2.5 MG/IPRATROPIUM 0.5 MG NEB (PRN) NEB (16:45)
[2017-02-20 17:00] VITALS: BP 126/62; PULSE 62; RESP 24; TEMP 96.5; O2SAT 94
[2017-02-20] MEDS: TIOTROPIUM BROMIDE 18 MCG INH INH SCH (17:49)
[2017-02-20 20:00] VITALS: BP 135/66; PULSE 70; RESP 17; TEMP 96.8; O2SAT 95
[2017-02-20] MEDS: BUDESONIDE-FORMOTEROL 160/4.5 MCG INHALER INH SCH (20:52)
[2017-02-21] VITALS (8 sets, daily range): BP systolic 101–150; BP diastolic 50–94; PULSE 59–68; RESP 16–20; TEMP 96.2–97.3; O2SAT 95–99
[2017-02-21] MEDS: PANTOPRAZOLE INJ 80 MG in SODIUM CHLORIDE 0.9% INJ 100 ML IV SCH (02:19)
[2017-02-21] MEDS: LEVOTHYROXINE SODIUM 125 MCG TAB PO SCH (04:24)
[2017-02-21] MEDS ORDERED: PROPOFOL 200 MG/20 ML AMP IV ONE (09:21)
--- NOTE | 2017-02-21 09:38 | GIPROC ---
[facility] [address] [facility]. [facility], [address] EGD PROCEDURE REPORT EXAM DATE: 02/21/2017 PATIENT NAME: Jones Elliott MR #: [id number] BIRTHDATE: 1930 ATTENDING: Cara Aranda MD ORDER #: [id number] FORESTRY EXTENSION SPECIALIST: Markos Rivas and Carlos Anguiano STATUS: inpatient INDICATIONS: The patient is a 86 yr old male here for an EGD due to anemia, gi bleeding PROCEDURE PERFORMED: EGD w/ biopsy EGD w/ ablation using APC MEDICATIONS: None and Per Anesthesia. TOPICAL ANESTHETIC: none CONSENT: The patient understands the risks and benefits of the procedure and understands that these risks include, but are not limited to: sedation, allergic reaction, infection, perforation and/or bleeding. Alternative means of evaluation and treatment include, among others: physical exam, x-rays, and/or surgical intervention. The patient elects to proceed with this endoscopic procedure. medical equipment was checked for proper function. Hand hygiene and appropriate measures for infection prevention was taken. After the risks, benefits and alternatives of the procedure were thoroughly explained, Informed consent was verified, confirmed and timeout was successfully executed by the treatment team. The patient was anesthetized with topical anesthesia and the Pentax [id number]-[id number] and [id number] endoscope was introduced through the mouth and advanced to the second portion of the duodenum. Retroflexed views revealed a hiatal hernia The gastroscope was then slowly withdrawn and removed. Gastritis antrum-biopsy GAVE antru-s/p APC esophagitis distal esophagus-biopsy. ADVERSE EVENTS: There were no complications. IMPRESSIONS: 1. 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 Retroflexed views revealed a hiatal hernia RECOMMENDATIONS: 1. Await biopsy results. Biopsy results will not be ready for 7-10 days. If you don't hear from us in two weeks, call our office for biopsy results. 2. Anti-reflux regimen 3. Continue PPI 4. Ct abdomen/pelvis colonoscopy if agrees avoid NSAIDS, ETOH PATIENT CONDITION: stable DISPOSITION: Inpatient REPEAT EXAM: EGD pending biopsy results Cara Aranda MD eSigned: Cara Aranda MD 02/21/2017 9:38 AM cc: PATIENT NAME: Jones Elliott MR#: [id number]
[2017-02-21 11:16] LABS: AUTOMATED NEUTROPHIL # 5.9 TH/MM3 (1.8-7.7); BASOPHIL % 0.2 % (0.0-2.0); EOSINOPHIL # 0.3 TH/MM3 (0-0.4); HEMATOCRIT 29.6 % (39.0-51.0); HEMO FLAGS DIFF FINAL; LYMPH % 11.2 % (9.0-44.0); LYMPHOCYTE # 0.8 TH/MM3 (1.0-4.8); MEAN CELL VOLUME 91.3 FL (80.0-100.0); MEAN CORPUSCULAR HEMOGLOBIN 30.4 PG (27.0-34.0); MEAN CORPUSCULAR HGB CONC 33.3 % (32.0-36.0); MONO % 7.5 % (0.0-8.0); NEUT % 77.1 % (16.0-70.0); PLATELET COUNT 140 TH/MM3 (150-450); RED BLOOD COUNT 3.24 MIL/MM3 (4.50-5.90); RED CELL DISTRIBUTION WIDTH 16.4 % (11.6-17.2); WHITE BLOOD COUNT 7.6 TH/MM3 (4.0-11.0)
[2017-02-21 11:51] LABS: BICARBONATE 24.6 MEQ/L (21.0-32.0)
[2017-02-21] MEDS: ATENOLOL 25 MG TAB PO SCH (12:06)
[2017-02-21] MEDS: FERROUS SULFATE 325 MG (65 MG ELEMENTAL IRON) TAB PO SCH ×2 (12:06→19:37)
[2017-02-21] MEDS: TIOTROPIUM BROMIDE 18 MCG INH INH SCH (12:06)
[2017-02-21] MEDS: SODIUM CHLORIDE 0.9% FLUSH 10 ML FLUSH IV FLUSH SCH ×2 (12:07→19:37)
[2017-02-21] MEDS: BUDESONIDE-FORMOTEROL 160/4.5 MCG INHALER INH SCH ×2 (12:07→19:37)
--- NOTE | 2017-02-21 13:05 | HHI.PR ---
Subjective Remarks tolerated EGD well no complains tolerating po Objective Vitals Vital Signs Date Time Temp Pulse Resp B/P Pulse Ox O2 Delivery O2 Flow Rate FiO2 02/21/17 09:51 60 18 95/49 96 02/21/17 09:41 59 18 107/48 98 02/21/17 09:31 97.6 59 18 94/64 99 02/21/17 08:15 97.1 66 20 143/85 98 02/21/17 08:05 97.1 66 20 143/85 99 02/21/17 07:59 97.1 66 20 143/85 99 02/21/17 04:00 97.0 66 16 101/50 96 02/21/17 00:00 96.2 64 16 127/70 95 02/20/17 20:00 96.8 70 17 135/66 95 02/20/17 17:00 96.5 62 24 126/62 94 I/O 02/20/17 02/20/17 02/20/17 02/21/17 02/21/17 02/21/17 07:00 15:00 23:00 07:00 15:00 23:00 Intake Total 480 ml Output Total 400 ml 400 ml 300 ml 550 ml Balance -400 ml 80 ml -300 ml -550 ml Intake Oral 480 ml Output Urine Total 400 ml 400 ml 300 ml 550 ml # Bowel Movements 0 1 Result Diagram: 02/21/17 0931 02/21/17 0931 Imaging Last Impressions Chest X-Ray 02/18/17 0000 Signed Impressions: Service Date/Time: Saturday, February 18, 2017 21:42 - CONCLUSION: No acute disease. Anselmo Staley MD Objective Remarks awake and alert, oriented x 3, NAD lungs no rales ,no wheezes or rales regular rhythm abdomen soft, nontender, good bowel sounds + umbilical hernia extremities no edema neuro exam- unremarkable Procedures 02/21- EGD- findings with ectasia, gastritis- s/p ablation and biopsy A/P Problem List: (1) Symptomatic anemia ICD Code: D64.9 Status: Acute (2) GI bleed ICD Code: K92.2 Status: Acute Assessment and Plan This a pleasant 86-year-old male patient with past medical history which includes hypertension, hyperlipidemia, hypothyroidism, osteoarthritis, GERD, chronic kidney disease, COPD and AAA status post repair. Patient presents after instructed by his primary care provider. Patient's primary care provider noted a drop in hemoglobin from 14.1-8.0. Patient reports for the past 2-3 weeks he has been having dark tarry stools. For the past 3 days patient reports he has had increasing generalized weakness, feeling lightheaded/ dizziness and shortness of breath. Hemoccult stool positive emergency department Symptomatic anemia likely with GIB- S/P EGD - gastritis, esophagitis, vascular ectasia S/P ablation and biopsy done -S/P transfuse 2 units RBC H and H stable GI - ff- on PPI - low iron stores- on Iron bid MANDY from GIB- renal functions improves, non oliguric Hypertension- chronic- good readings -hold lisinopriHCTZ light of acute kidney injury -Continue atenolol Hypothyroidism- chronic - Continue Synthroid COPD- improved- no wheezing -nebulizations prn MDIs Symbicort - restart. Spiriva 1 puff daily Increase activity DVT prophylaxis with SCDs- avoid chemical DVT prophylaxis GI bleed Discussed with patient CM - DC planning Problem Qualifiers (1) GI bleed: Qualified Code: K92.2 - Gastrointestinal hemorrhage, unspecified gastrointestinal hemorrhage type Darice Moon MD Feb 21, 2017 13:05
--- NOTE | 2017-02-21 16:22 | RADRPT ---
EXAM DATE/TIME: 02/21/2017 16:03 [place] COMPARISON: No previous studies available for comparison. INDICATIONS : Anemia. ORAL CONTRAST: Prescribed oral contrast ingested. RADIATION DOSE: 16.35 CTDIvol (mGy) MEDICAL HISTORY : Cardiovascular disease. Hypertension. SURGICAL HISTORY : Abdominal aortic aneurysm repair. ENCOUNTER: Initial ACUITY: 1 day PAIN SCALE: 0/10 LOCATION: Bilateral abdomen. TECHNIQUE: Volumetric scanning of the abdomen and pelvis was performed. Using automated exposure control and ad justment of the mA and/or kV according to patient size, radiation dose was kept as low as reasonably achievable to obtain optimal diagnostic quality images. FINDINGS: Abdomen CT: Gallstones are present within the gallbladder without signs of cholecystitis for technique.There is p neumobilia in the left hepatic lobe and middle hepatic bile ducts with a couple of bubbles inside the gallbladder. In the ascending colon near the hepatic flexure there is an approximate 1.1 cm calcific ation could potentially be a gallstone which has eroded through the gallbladder wall and migrated dis tally. The spleen, pancreas, kidneys, adrenals are unremarkable. There is no evidence for any appreci able pathological adenopathy, free fluid, or bowel obstruction. Slight scarring and/or atelectasis i s seen in bilateral lung bases. Chronic vascular calcifications are seen with aortobiiliac stent for AAA repair and the [place] AAA sac measures 3.6 x 3.8 cm in size. There is fat herniation in the anter ior abdominal wall without evidence for bowel herniation. There are punctate calcifications involving the right adrenal gland chronic in nature of no clinical significance. Pelvic CT: There is no evidence for mass, abscess formation, or any significant adenopathy within the pelvis. Th e prostate gland measures 4.5 x 5.8 in AP and transverse diameters inhomogeneous in appearance and no nspecific. There are degenerative changes and possible disc bulge involving lower lumbosacral spine m ainly at L4-5 and L5-S1 not adequately characterized. IMPRESSION: 1. Cholelithiasis and pneumobilia with a couple of bubbles of gas inside the gallbladder of uncertain etiology, however there is a calcific density within the ascending colon possibly a gallstone which has eroded through the gallbladder wall and migrated distally creating the above-mentioned pneumobili a. 2. Fat-containing anterior abdominal wall hernia. Lisseth Boss MD on February 21, 2017 at 16:09 Board Certified Radiologist. This report was verified electronically.
[2017-02-21] MEDS: SODIUM CHLOR 0.9% 1000 ML INJ 1,000 ML IV SCH (23:50)
[2017-02-22] VITALS: BP 155/72; PULSE 59; RESP 18; TEMP 97.2; O2SAT 95
[2017-02-22 04:00] VITALS: BP 133/67; PULSE 66; RESP 17; TEMP 97.2; O2SAT 96
[2017-02-22] MEDS: LEVOTHYROXINE SODIUM 125 MCG TAB PO SCH (05:11)
[2017-02-22 08:00] VITALS: BP 141/67; PULSE 58; RESP 18; TEMP 98.6; O2SAT 99
[2017-02-22] MEDS: FERROUS SULFATE 325 MG (65 MG ELEMENTAL IRON) TAB PO SCH (08:28)
[2017-02-22] MEDS: ATENOLOL 25 MG TAB PO SCH (08:29)
[2017-02-22] MEDS: SODIUM CHLORIDE 0.9% FLUSH 10 ML FLUSH IV FLUSH SCH (08:30)
[2017-02-22] MEDS: TIOTROPIUM BROMIDE 18 MCG INH INH SCH (08:33)
[2017-02-22] MEDS: BUDESONIDE-FORMOTEROL 160/4.5 MCG INHALER INH SCH (08:33)
[2017-02-22] MEDS ORDERED: PANTOPRAZOLE SOD 40 MG DELAYED RELEASE TAB PO SCH (09:00)
--- NOTE | 2017-02-22 09:06 | HHI.PR ---
Subjective Remarks tolerating po well no nausea, vomiting or abdominal pain up and ambulating- no dizziness Objective Vitals Vital Signs Date Time Temp Pulse Resp B/P Pulse Ox O2 Delivery O2 Flow Rate FiO2 02/22/17 04:00 97.2 66 17 133/67 96 02/22/17 00:00 97.2 59 18 155/72 95 02/21/17 20:00 97.3 68 17 126/94 96 02/21/17 16:30 97.1 59 20 136/75 97 02/21/17 12:00 97.2 62 20 150/73 99 02/21/17 09:51 60 18 95/49 96 02/21/17 09:41 59 18 107/48 98 02/21/17 09:31 97.6 59 18 94/64 99 I/O 02/21/17 02/21/17 02/21/17 02/22/17 02/22/17 02/22/17 07:00 15:00 23:00 07:00 15:00 23:00 Intake Total 480 ml 398 ml Output Total 550 ml 100 ml 420 ml Balance -550 ml 480 ml -100 ml -420 ml 398 ml Intake Oral 480 ml IV Total 398 ml Output Urine Total 550 ml 100 ml 420 ml # Voids 3 # Bowel Movements 1 1 Result Diagram: 02/21/17 0931 02/21/17 0931 Imaging Last Impressions Chest X-Ray 02/18/17 0000 Signed Impressions: Service Date/Time: Saturday, February 18, 2017 21:42 - CONCLUSION: No acute disease. Anselmo Staley MD Objective Remarks awake and alert, oriented x 3, NAD lungs no rales ,no wheezes or rales regular rhythm abdomen soft, nontender, good bowel sounds, + umbilical hernia extremities no edema neuro exam- unremarkable Procedures 02/21- EGD- findings with ectasia, gastritis- s/p ablation and biopsy A/P Problem List: (1) Symptomatic anemia ICD Code: D64.9 Status: Acute (2) GI bleed ICD Code: K92.2 Status: Acute Assessment and Plan This a pleasant 86-year-old male patient with past medical history which includes hypertension, hyperlipidemia, hypothyroidism, osteoarthritis, GERD, chronic kidney disease, COPD and AAA status post repair. Patient presents after instructed by his primary care provider. Patient's primary care provider noted a drop in hemoglobin from 14.1-8.0. Patient reports for the past 2-3 weeks he has been having dark tarry stools. For the past 3 days patient reports he has had increasing generalized weakness, feeling lightheaded/ dizziness and shortness of breath. Symptomatic anemia likely with GIB- S/P EGD - gastritis, esophagitis, vascular ectasia S/P ablation and biopsy done -S/P transfuse 2 units RBC H and H stable GI - ff- on PPI. refuse colonoscopy - low iron stores- on Iron bid -restart ASA 81 mg if cleared with GI as OP MANDY from GIB- renal functions improves, non oliguric Hypertension- chronic- good readings -hold lisinopriHCTZ light of acute kidney injury -Continue atenolol- decreased to once daily- good readings Hypothyroidism- chronic - Continue Synthroid COPD- improved-- baseline dyspnea with exertion -nebulizations prn MDIs Symbicort - Spiriva 1 puff daily Up and ambulating Incidental gallstones on CT- asymptomatic d/w patient if develops right upper quadrant pain- to come to ER refuse any surgery if needed anyway d/w Dr. Aranda- OK to start ASA Surgical consult for evaluation prior to discharge to evaluate - abnormal CT findings Discussed with patient and daughter extensively- Beba Kit on the phone- updated her and his significant other CM consult - DC home today with home health care after evaluated/cleared by GS Problem Qualifiers (1) GI bleed: Qualified Code: K92.2 - Gastrointestinal hemorrhage, unspecified gastrointestinal hemorrhage type Darcie Moon MD Feb 22, 2017 09:06
[2017-02-22] MEDS ORDERED: SYMB160A INH (09:18)
[2017-02-22] MEDS ORDERED: SPIRCAP INH (09:18)
[2017-02-22] MEDS ORDERED: FERR325T PO (09:18)
[2017-02-22] MEDS ORDERED: PANT40TA3 PO (09:18)
[2017-02-22] MEDS ORDERED: ATEN25TA PO (09:18)
--- NOTE | 2017-02-22 09:27 | HHI.FF ---
Face to Face Verification Diagnosis: (1) GI bleed (2) HTN (hypertension) (3) Symptomatic anemia Home Health Nursing Order: Medical education Signs/symptoms of disease process Medication education-adverse effect Nursing assessment with vital signs [employer] Order: To Evaluate: Support services I have seen patient Jones Elliott on 02/22/17. My clinical findings support the need for the requested home health care services because: Ltd mobility - disease progression Need for psychosocial assistance I certify that my clinical findings support that this patient is homebound because: Hx COPD- exertion dyspnea/weakness Darcie Moon MD Feb 22, 2017 09:27
[2017-02-22 11:00] LABS: HEMATOCRIT 29.8 % (39.0-51.0)
[2017-02-22 12:00] VITALS: BP 128/75; PULSE 61; RESP 18; TEMP 96.2; O2SAT 97
[2017-02-22 16:00] VITALS: BP 114/65; PULSE 61; RESP 18; TEMP 96.5; O2SAT 98
--- NOTE | 2017-02-22 17:00 | HHI.GIFU ---
Subjective Remarks Pt sitting on edge of bed, dressed in civilian clothes, asking to go home. Denies abdominal pain, nausea, vomiting, diarrhea, bleeding. (Bekah Wiseman) Objective Vitals I&O Vital Signs Date Time Temp Pulse Resp B/P Pulse Ox O2 Delivery O2 Flow Rate FiO2 02/22/17 12:00 96.2 61 18 128/75 97 02/22/17 08:00 98.6 58 18 141/67 99 02/22/17 04:00 97.2 66 17 133/67 96 02/22/17 00:00 97.2 59 18 155/72 95 02/21/17 20:00 97.3 68 17 126/94 96 I/O 02/21/17 02/21/17 02/21/17 02/22/17 02/22/17 02/22/17 07:00 15:00 23:00 07:00 15:00 23:00 Intake Total 480 ml 398 ml Output Total 550 ml 100 ml 420 ml Balance -550 ml 480 ml -100 ml -420 ml 398 ml Intake Oral 480 ml IV Total 398 ml Output Urine Total 550 ml 100 ml 420 ml # Voids 3 # Bowel Movements 1 1 Laboratory Laboratory Tests Test 02/22/17 10:29 Hemoglobin 10.2 Hematocrit 29.8 Imaging Last Impressions Chest X-Ray 02/18/17 0000 Signed Impressions: Service Date/Time: Saturday, February 18, 2017 21:42 - CONCLUSION: No acute disease. Anselmo Staley MD Physical Exam HEENT: EOMI; atraumatic; no jaundice. NECK: Neck is supple CHEST: CTA CARDIAC: RRR ABDOMEN: Soft, obese, umbilical hernia, nontender; no hepatosplenomegaly; bowel sounds are present in all four quadrants. EXTREMITIES: No clubbing, cyanosis, or edema. SKIN: Normal; no rash; no jaundice. RESEARCH FELLOW: No focal deficits; alert and oriented times three. (Bekah Wiseman) Assessment and Plan Plan ASSESSMENT - GI bleed/melena/anemia- s/p EGD ---> GAVE- antru s/p APC, colonoscopy recommended but pt refuses. presented to the emergency department for out patient labs that revealed a significant drop in hgb from 14.1-8.0. and was instructed by PCP to go to the ED for blood transfusion. Patient reports 2-3 weeks history of black tarry stools, this wasn't every day and not very frequent. He reports increasing generalized weakness, feeling lightheaded/ dizziness and shortness of breath. Patient denies diarrhea, bright red blood per rectum, abdominal pain, nausea/vomiting, fevers, or chills. Denies any prior history of GI bleeding. Denies NSAIDs. He does take aspirin daily. He drinks 1-2 alcoholic drinks a night but not every night. Reports he has never had a colonoscopy before. He does have GERD and had EGD 7 years ago. Hemoccult stool positive emergency department. Hgb is 10.2 today. He did receive 2 units of blood. He had one black tarry stools today. PPI drip - gallstones. CT 02/21/17 ----> cholelithiasis and pneumobilia with couple bubbles gas inside gallbladder of uncertain etiology, however there megan calcific density within the ascending colon possibly gallstone which has eroded through gallbladder walla nd migrated distally creating the above mentioned pneumobilia, fat containing anterior abdominal wall hernia. GS consulted - Anemia- secondary to acute blood loss 10.2, 29.8 improving - hypertension, hyperlipidemia, hypothyroidism, osteoarthritis, GERD, chronic kidney disease, COPD and AAA status post repair Plan: - KIM - Monitor hh - Transfuse as needed - ok to DC from GI standpoint following surgical consult - follow up as outpatient - pt refusing colonoscopy Pt seen by Dr Aranda and myself and this note is written on her behalf (Bekah Wiseman) Physician Comments agree with above (Cara Aranda MD) Bekah Wiseman Feb 22, 2017 17:00 Cara Aranda MD Feb 22, 2017 19:17
--- NOTE | 2017-02-23 06:01 | MB ---
cc: PABLO SLATER DATE OF CONSULTATION 02/22/[address] Moon REASON FOR CONSULTATION Gallstones and abnormal CT scan findings of pneumobilia. HISTORY OF PRESENT ILLNESS The patient is an 86-year-old male who was admitted to [facility] with upper GI bleed. The patient underwent treatment by Gastroenterology including upper endoscopy with the finding of gastritis as well as some ablation of the area of bleeding. The patient had resolution of this. The patient also underwent a CT scan on 02/21/2017 which showed pneumobilia which was performed after the upper endoscopy. The patient currently has no pain, feels well and is hemodynamically stable with stable hemoglobin. He denies any previous history of right upper quadrant pain or back pain or of discomfort with fatty or large meals. The patient does have a hernia which he says is chronic and does cause some discomfort occasionally. Denies any history of incarceration. REVIEW OF SYSTEMS A 12-point review of systems done with the patient is negative except for the pertinent positives mentioned above in the History of Present Illness. PAST MEDICAL HISTORY 1. Hypertension. 2. Hypokalemia. 3. Hypothyroidism. 4. Osteoarthritis. 5. History of AAA repair. 6. Gastroesophageal reflux disease. 7. COPD. PAST SURGICAL HISTORY 1. Hernia repair. 2. Knee replacement. 3. AAA repair. HOME MEDICATIONS 1. Multiple supplements. 2. Levothyroxine. 3. Antihypertensives. 4. Aspirin 81 mg. 5. Ranitidine once a day. ALLERGIES No known drug allergies. FAMILY HISTORY Negative GI malignancy. SOCIAL HISTORY The patient occasionally drinks alcohol. Quit smoking cigarettes approximately 10 years ago. Denies illicit drug use. PHYSICAL EXAMINATION VITAL SIGNS: Temperature 96.5 degrees, blood pressure 114/65, heart rate 61. GENERAL: The patient is a well-developed, well-nourished male in no acute distress. HEENT: Head is normocephalic, atraumatic. Pupils are equal, round, reactive to light. Sclerae anicteric. Mucous membranes are moist. NECK: Supple. No JVD. LUNGS: Clear to auscultation bilaterally. Nonlabored breathing pattern. HEART: Regular rate and rhythm. No murmurs. ABDOMEN: Soft, nondistended, obese. He has a fat-containing, chronically incarcerated hernia. He has no right upper quadrant pain. Negative Coffey sign. No ascites. No organomegaly. Normal bowel sounds. BACK: No CVA tenderness. EXTREMITIES: No clubbing, cyanosis or edema. NEUROLOGIC EXAM: The patient is awake, alert and appropriate, oriented x 4. Nonfocal peripheral exam. Cranial nerves II-XII are grossly intact. LABORATORY VALUES White blood cell count 7.6, hemoglobin is 10.2. IMAGING STUDIES CT scan of the abdomen and pelvis does show pneumobilia and gallstones. ASSESSMENT AND PLAN The patient is an 86-year-old male with likely benign pneumobilia secondary to CT scan immediately after an upper endoscopy. The patient I am certain does not have any fistula from his gallbladder due to any GI tract as he has no pain and CT scan shows really no significant inflammation which would be the case if he had a fistula. The upper endoscopy also failed to show any connection at the duodenum. I did discuss my findings and recommendations with the patient and he would like to avoid surgery and again he has no pain at this point in time. He has symptomatic gallstones as well and I did discuss with the patient watchful waiting approach with this versus surgery and he wishes to pursue watchful waiting. I did offer the followup in my office for consideration of hernia repair. He will consider this and contact information was provided to the patient. All questions were answered to his satisfaction. I am okay with the patient being discharged for followup with me if needed. MD VALENCIA Wagner/МАРИНА /10:00 PM /5:50 AM
--- NOTE | 2017-02-23 12:05 | HHI.DS ---
Discharge Summary Admission Date Feb 18, 2017 at 17:17 Discharge Date: Feb 22, 2017 Admitting Diagnosis GI Bleed, Symptomatic Anemia (1) Symptomatic anemia ICD Code: D64.9 Diagnosis: Principal (2) GI bleed ICD Code: K92.2 Diagnosis: Principal Procedures 02/21- EGD- findings with ectasia, gastritis- s/p ablation and biopsy Brief History - From Admission This a pleasant 86-year-old male patient with past medical history which includes hypertension, hyperlipidemia, hypothyroidism, osteoarthritis, GERD, chronic kidney disease, COPD and AAA status post repair. Patient presents to the emergency department today after instructed by his primary care provider. Patient's primary care provider noted a drop in hemoglobin from 14.1-8.0. Patient reports for the past 2-3 weeks he has been having dark tarry stools. For the past 3 days patient reports he has had increasing generalized weakness, feeling lightheaded/dizziness and shortness of breath. The symptoms are getting progressively worse. Patient reports the feeling lightheaded and dizziness is worse with standing or sitting up fast. Patient denies right red blood per rectum, abdominal pain, nausea/vomiting, fevers, chills, cough, congestion or chest pain. Denies any prior history of GI bleeding. He does take aspirin daily. Reports he has never had a colonoscopy before. Hemoccult stool positive emergency department CBC/BMP: 02/22/17 1029 02/21/17 0931 Significant Findings Laboratory Tests Test 02/21/17 02/22/17 09:31 10:29 Red Blood Count 3.24 MIL/MM3 (4.50-5.90) Hemoglobin 9.9 GM/DL 10.2 GM/DL (13.0-17.0) (13.0-17.0) Hematocrit 29.6 % 29.8 % (39.0-51.0) (39.0-51.0) Platelet Count 140 TH/MM3 (150-450) Neutrophils (%) (Auto) 77.1 % (16.0-70.0) Lymphocytes # (Auto) 0.8 TH/MM3 (1.0-4.8) Chloride Level 112 MEQ/L (98-107) Estimat Glomerular Filtration 57 ML/MIN (>89) Rate Random Glucose 108 MG/DL (74-106) Calcium Level 8.2 MG/DL (8.5-10.1) Imaging Last Impressions Chest X-Ray 02/18/17 0000 Signed Impressions: Service Date/Time: Saturday, February 18, 2017 21:42 - CONCLUSION: No acute disease. Anselmo Staley MD PE at Discharge awake and alert, oriented x 3, NAD lungs no rales ,no wheezes or rales regular rhythm abdomen soft, nontender, good bowel sounds + umbilical hernia extremities no edema neuro exam- unremarkable Pt update on day of discharge awake and alert, no weakness, or shortness of breath Hospital Course This a pleasant 86-year-old male patient with past medical history which includes hypertension, hyperlipidemia, hypothyroidism, osteoarthritis, GERD, chronic kidney disease, COPD and AAA status post repair. Patient presents after instructed by his primary care provider. Patient's primary care provider noted a drop in hemoglobin from 14.1-8.0. Patient reports for the past 2-3 weeks he has been having dark tarry stools. For the past 3 days patient reports he has had increasing generalized weakness, feeling lightheaded/ dizziness and shortness of breath. Symptomatic anemia likely with GIB- S/P EGD - gastritis, esophagitis, vascular ectasia S/P ablation and biopsy done -S/P transfuse 2 units RBC H and H stable GI - ff- on PPI. refuse colonoscopy - low iron stores- on Iron bid -restart ASA 81 mg if cleared with GI as OP MANDY from GIB- renal functions improves, non oliguric Hypertension- chronic- good readings -hold lisinopriHCTZ light of acute kidney injury -Continue atenolol- decreased to once daily- good readings Hypothyroidism- chronic - Continue Synthroid COPD- improved-- baseline dyspnea with exertion -nebulizations prn MDIs Symbicort - Spiriva 1 puff daily Up and ambulating Incidental gallstones on CT- asymptomatic d/w patient if develops right upper quadrant pain- to come to ER refuse any surgery if needed anyway d/w Dr. Aranda- OK to start ASA Surgical consult for evaluation prior to discharge to evaluate - abnormal CT findings Discussed with patient and daughter extensively- Beba Pantoja on the phone- updated her and his significant other CM consult - DC home today with home health care after evaluated/cleared by GS Pt Condition on Discharge: Stable Discharge Disposition: Discharge Home Discharge Time: <= 30 minutes Discharge Instructions DIET: Follow Instructions for: As Tolerated, No Restrictions Speech Therapy-Diet Recommends: Regular Activities you can perform: Weight Bearing as Kostas Activities to Avoid: Strenuous Activity Follow up Referrals: Appointment for Follow Up Gastroenterology - 2 Weeks with Cara Aranda MD PCP Follow-up - 3-5 Days with PCP SNF/[facility]/ with [facility] New Medications: Atenolol (Atenolol) 25 Mg Tab 25 MG PO DAILY HTN Days 30 TAB Budesonide-Formoterol Inh (Symbicort Inh) 160-4.5 Mcg/Act Aero 2 PUFF INH Q12HR COPD #1 Ref 3 INHALER Ferrous Sulfate (Ferrous Sulfate) 325 Mg Tab 325 MG PO BID FEdef Days 30 Ref 1 TAB Pantoprazole (Pantoprazole) 40 Mg Tab 40 MG PO DAILY GASTR Days 30 Ref 1 TAB Tiotropium Inh (Spiriva Handihaler) 18 Mcg Cap 18 MCG INH DAILY COPD #1 Ref 3 CAP Continued Medications: Aspirin (Aspirin) 81 Mg Tab 81 MG PO DAILY Glucosamine-Chondroitin (Glucosamine/Chondroitin C) 1 Tab Tab 1 TAB PO DAILY Levothyroxine Sodium (Levothyroxine 125 mcg) 125 Mcg Tab 125 MCG PO HS Lovastatin (Lovastatin) 20 Mg Tab 20 MG PO [place]-3 Fatty Acids (Fish Oil) 1,000 Mg Cap 1000 MG PO DAILY Discontinued Medications: Atenolol (Atenolol) 25 Mg Tab 25 MG PO BID Benazepril/Hctz 10-12.5 mg (Lotensin/Hct 10-12.5 mg) Tab 1 TAB PO DAILY Multiple Vitamin (Multivitamin) 1 Tab Tab 1 TAB PO DAILY Ranitidine 150 mg (Ranitidine 150 mg) 150 Mg Cap 150 MG PO HS Darcie Moon MD Feb 23, 2017 12:05
== END 2017-02-22 20:36 | disposition home or self-care (01) | DRG 378 ==
LOC: NEPE 13:06 → NEDA 17:17 → HOCB 18:32
PROVIDERS: ADMIT Internal Medicine; ATTEND Internal Medicine
PROC: 0DB68ZX Excision of Stomach, Via Natural or Artificial Opening Endoscopic, Diagnostic (ICD-10-PCS; 2017-02-21)
PROC: 0W3P8ZZ Control Bleeding in Gastrointestinal Tract, Via Natural or Artificial Opening Endoscopic (ICD-10-PCS; 2017-02-21)
PROC: 30253N1 (ICD-10-PCS; 2017-02-21)
PROC: 0DB58ZX Excision of Esophagus, Via Natural or Artificial Opening Endoscopic, Diagnostic (ICD-10-PCS; principal; 2017-02-21 08:50)
DX: K92.2 Gastrointestinal hemorrhage, unspecified (principal); D62 Acute posthemorrhagic anemia; N17.9 Acute kidney failure, unspecified; J44.9 Chronic obstructive pulmonary disease, unspecified; I12.9 Hypertensive chronic kidney disease with stage 1 through stage 4 chronic kidney disease, or unspecified chronic kidney disease; E03.9 Hypothyroidism, unspecified; E78.5 Hyperlipidemia, unspecified; N18.9 Chronic kidney disease, unspecified; K21.0 Gastro-esophageal reflux disease with esophagitis; K29.70 Gastritis, unspecified, without bleeding; M17.11 Unilateral primary osteoarthritis, right knee; K80.20 Calculus of gallbladder without cholecystitis without obstruction; Z79.82 Long term (current) use of aspirin; Z86.79 Personal history of other diseases of the circulatory system; Z96.651 Presence of right artificial knee joint; K44.9 Diaphragmatic hernia without obstruction or gangrene
CPT/HCPCS: 36430; 71010; 74176; 80048; 80053; 82728; 83540; 83550; 85007; 85014; 85018; 85025; 85027; 85610; 85730; 86850; 86900; 86901; 86920; 88305; 88312; 93005; 94664; 99285; C9113; J7030; P9016